=== PATIENT | female | born 1940 | race Caucasian/White ===

== ENCOUNTER 2017-02-09 18:36 | Emergency (ER) | payer MEDICARE, OTHER ==
[~2017-02-09] VITALS: Ht 160 cm; Wt 62.3 kg
[~2017-02-09 18:36] MED LIST: AMLO25TA PO; CALC-190 PO; HYDR12.55 PO; LISI10TA4 PO; NEUR100C PO; PRAV1TAB39 PO; SYNT88TA2 PO; TYLE325T5 PO; VITATAB11 PO
[2017-02-09] MEDS ORDERED: LISI40TAB PO (18:50)
[2017-02-09] MEDS ORDERED: AZEL1SPR3 (18:50)
[2017-02-09] MEDS ORDERED: PRAV20TA2 PO (18:50)
[2017-02-09] MEDS ORDERED: SPIR25TA2 PO (18:50)
[2017-02-09] MEDS ORDERED: LEVO75TA4 PO (18:50)
[2017-02-09] MEDS ORDERED: TYLE500T78 PO (19:08)
[2017-02-09] MEDS ORDERED: ONDANSETRON 4 MG ORAL DISINTEGRATING TAB (S0181) PO ONE ×3 (20:00→23:00)
[2017-02-09] MEDS ORDERED: PERCOCET 5MG/325MG TAB PO ONE ×2 (20:00→22:00)
--- NOTE | 2017-02-09 21:00 | REPUSA ---
CLINICAL INFORMATION: Pain. TECHNIQUE: Right ankle, 4 views. FINDINGS: There is an acute avulsion fracture often distal fibula, with a displaced fragments seen laterally. M oderate lateral soft tissue swelling is noted as well. The ankle mortise is intact. The osseous align ment is normal. The visualized portions of the tarsal bones and hindfoot are within normal limits. IMPRESSION: Acute, laterally displaced avulsion fracture of the distal fibula..
--- NOTE | 2017-02-09 21:00 | REPUSA ---
CLINICAL INFORMATION: Pain. TECHNIQUE: 5 views of the right foot. FINDINGS: The metatarsals remain aligned with the cuneiforms. A surgical pin is seen in the distal first metata rsal. Fixation of the fracture at the site is noted. There is an acute nondisplaced fracture of the c alcaneus. There is no abnormal periosteal reaction. The joint spaces are preserved. The subtalar join ts appear normal. The navicular and cuboid bones are intact as well. The soft tissues appear unremark able. IMPRESSION: 1. Acute nondisplaced fracture of the calcaneus. 2. Surgical fixated fracture of the distal first metatarsal.
[2017-02-09] MEDS ORDERED: NORCO 5/325MG TABLET (BULK FOR ED) PO ONE (22:00)
[2017-02-09] MEDS ORDERED: ZOFR4TAB3 PO (22:03)
[2017-02-09] MEDS ORDERED: PERC5TAB12 PO ×2 (22:03→22:07)
[2017-02-09 22:30] VITALS: BP 161/71
== END 2017-02-10 00:18 | disposition home or self-care (01) ==
LOC: EDBD 18:36 → M ED 19:36
DX: S92.001A Unspecified fracture of right calcaneus, initial encounter for closed fracture (principal); S82.491A Other fracture of shaft of right fibula, initial encounter for closed fracture; W10.9XXA Fall (on) (from) unspecified stairs and steps, initial encounter; Y92.094 Garage of other non-institutional residence as the place of occurrence of the external cause; Y93.01 Activity, walking, marching and hiking; Y99.9 Unspecified external cause status; I10 Essential (primary) hypertension; E03.9 Hypothyroidism, unspecified; R51 Headache; Z79.899 Other long term (current) drug therapy; Z88.8 Allergy status to other drugs, medicaments and biological substances; Z88.5 Allergy status to narcotic agent; Z88.6 Allergy status to analgesic agent

== ENCOUNTER → 2017-09-06 | Outpatient (REF) | payer MEDICARE, OTHER | LOC: M LAB REF 16:46 | DX: E03.9 Hypothyroidism, unspecified (principal) | CPT/HCPCS: 84481 ==

== ENCOUNTER 2017-12-18 08:54 | Day surgery (SDC) | payer MEDICARE, OTHER ==
[~2017-12-18 08:54] MED LIST changes: +ACETAMINOPHEN 325 MG TAB PO; -AMLO25TA PO; -CALC-190 PO; -HYDR12.55 PO; -LISI10TA4 PO; +MIDAZOLAM INJ 2 MG/2 ML VIAL (J2250) As Ordered; -NEUR100C PO; +PHENYLEPHRINE HCL 10 % OPHTH. SOL 5ML OS; -PRAV1TAB39 PO; -SYNT88TA2 PO; -TYLE325T5 PO; -VITATAB11 PO; +fentaNYL 100 MCG/2 ML INJECTION (J3010) As Ordered
[2017-12-18] MEDS: LIDOCAINE 3.5 % 1ML OPHTH TOPICAL GEL OU (09:55)
[2017-12-18] MEDS: OFLOXACIN 0.3 % (OCUFLOX) OPTH SOL 5ML OS (10:00)
[2017-12-18] MEDS: TROPICAMIDE 1% OPHTH SOLN 2ML OS (10:00)
[2017-12-18] MEDS: CYCLOPENTOLATE 2% OPHTH SOLN 2ML BTL OS (10:00)
[2017-12-18] MEDS: PHENYLEPHRINE 2.5% OPHTH SOL 2ML OS (10:00)
[2017-12-18] MEDS: HEALON DUET (HEALON 10MG/ML 0.55ML & HEALON ENDOCOAT 30MG/ML 0.85ML) As Ordered (11:50)
[2017-12-18] MEDS: LIDOCAINE 1% SDV 5 ML VIAL As Ordered (11:50)
[2017-12-18] MEDS: POVIDONE-IODINE 5% OPHTH PREP SOL 30ML As Ordered (11:50)
[2017-12-18] MEDS: TRIAMCINOLONE PRES FR 40 MG/ML 1ML(TRIESENCE)(OR EYE ONLY)(J3300 PER 1MG) As Ordered ×2 (11:50→11:55)
[2017-12-18] MEDS: BSS with VANC/TOB/EPI for EYE CASES IR (11:50)
[2017-12-18] MEDS: MOXIFLOXACIN IN BSS 0.25MG/0.25ML INTRACAMERAL INJ (OR EYE ONLY)(J2280) As Ordered (11:51)
[2017-12-18] MEDS: LIDOCAINE 2% W/EPIN INJ 20ML **PRES FREE XX (11:52)
[2017-12-18] MEDS ORDERED: AcetaZOLAMIDE 500 MG ER CAP As Ordered (12:27)
[2017-12-18] MEDS: AcetaZOLAMIDE 500 MG ER CAP PO (12:30)
[2017-12-18] MEDS ORDERED: TRIMETHOBENZAMIDE 300 MG CAP PO (12:45)
[2017-12-18] MEDS ORDERED: ACETAMINOPHEN TAB 650MG DOSE (2X325MG) PO (13:00)
[2017-12-18] MEDS ORDERED: ONDANSETRON 4MG/2ML VIAL (J2405) IV (13:00)
== END 2017-12-18 12:50 | disposition home or self-care (01) ==
LOC: M SDC 08:54
DX: H26.9 Unspecified cataract (principal); I10 Essential (primary) hypertension; J45.909 Unspecified asthma, uncomplicated; E03.9 Hypothyroidism, unspecified; Z88.8 Allergy status to other drugs, medicaments and biological substances; Z79.899 Other long term (current) drug therapy; Z79.82 Long term (current) use of aspirin
CPT/HCPCS: 66984

== ENCOUNTER 2017-12-25 07:23 | Day surgery (SDC) | payer MEDICARE, OTHER ==
[~2017-12-25 07:23] MED LIST changes: +PHENYLEPHRINE HCL 10 % OPHTH. SOL 5ML OD; -PHENYLEPHRINE HCL 10 % OPHTH. SOL 5ML OS
[2017-12-25] MEDS: LIDOCAINE 3.5 % 1ML OPHTH TOPICAL GEL OU ×4 (08:15)
[2017-12-25] MEDS: TROPICAMIDE 1% OPHTH SOLN 2ML OD ×4 (08:18)
[2017-12-25] MEDS: OFLOXACIN 0.3 % (OCUFLOX) OPTH SOL 5ML OD ×4 (08:18)
[2017-12-25] MEDS: CYCLOPENTOLATE 2% OPHTH SOLN 2ML BTL OD ×4 (08:19)
[2017-12-25] MEDS: PHENYLEPHRINE 2.5% OPHTH SOL 2ML OD ×4 (08:20)
[2017-12-25] MEDS: POVIDONE-IODINE 5% OPHTH PREP SOL 30ML As Ordered ×4 (09:50)
[2017-12-25] MEDS: LIDOCAINE 1% SDV 5 ML VIAL As Ordered ×4 (09:53)
[2017-12-25] MEDS: BSS with VANC/TOB/EPI for EYE CASES IR ×4 (09:54)
[2017-12-25] MEDS: TRIAMCINOLONE PRES FR 40 MG/ML 1ML(TRIESENCE)(OR EYE ONLY)(J3300 PER 1MG) As Ordered ×4 (09:58)
[2017-12-25] MEDS: LIDOCAINE 2% W/EPIN INJ 20ML **PRES FREE As Ordered ×4 (09:59)
[2017-12-25] MEDS: MOXIFLOXACIN IN BSS 0.25MG/0.25ML INTRACAMERAL INJ (OR EYE ONLY)(J2280) As Ordered ×4 (09:59)
[2017-12-25] MEDS: HEALON DUET PRO(HEALON 10MG/ML 0.55ML & HEALON ENDOCOAT 30MG/ML 0.85ML) As Ordered (10:02)
[2017-12-25] MEDS: HEALON DUET (HEALON 10MG/ML 0.55ML & HEALON ENDOCOAT 30MG/ML 0.85ML) As Ordered ×3 (10:02)
[2017-12-25] MEDS ORDERED: AcetaZOLAMIDE 500 MG ER CAP As Ordered ×4 (10:31)
[2017-12-25] MEDS: AcetaZOLAMIDE 500 MG ER CAP PO ×4 (10:38)
[2017-12-25] MEDS ORDERED: TRIMETHOBENZAMIDE 300 MG CAP PO ×4 (10:45)
== END 2017-12-25 10:43 | disposition home or self-care (01) ==
LOC: M SDC 07:23
DX: H25.13 Age-related nuclear cataract, bilateral (principal); I10 Essential (primary) hypertension; E03.9 Hypothyroidism, unspecified; G43.909 Migraine, unspecified, not intractable, without status migrainosus; E78.00 Pure hypercholesterolemia, unspecified; Z88.8 Allergy status to other drugs, medicaments and biological substances; Z79.899 Other long term (current) drug therapy; Z87.19 Personal history of other diseases of the digestive system; Z86.2 Personal history of diseases of the blood and blood-forming organs and certain disorders involving the immune mechanism; Z87.891 Personal history of nicotine dependence; Z90.710 Acquired absence of both cervix and uterus; Z92.21 Personal history of antineoplastic chemotherapy; Z95.828 Presence of other vascular implants and grafts
CPT/HCPCS: 66984

== ENCOUNTER → 2018-02-12 | Outpatient (CLI) | payer MEDICARE, OTHER | LOC: M WHC 09:47 | DX: Z12.31 Encounter for screening mammogram for malignant neoplasm of breast (principal); Z92.89 Personal history of other medical treatment; Z92.29 Personal history of other drug therapy; Z80.3 Family history of malignant neoplasm of breast; Z80.0 Family history of malignant neoplasm of digestive organs | CPT/HCPCS: 77067 ==

== ENCOUNTER → 2018-07-29 | Outpatient (CLI) | payer MEDICARE, OTHER ==
[~2018-07-29] MED LIST changes: -ACETAMINOPHEN 325 MG TAB PO; +AMLO25TA PO; +ASPI81TA26 PO; +AZEL1SPR3; +CALC-190 PO; +CALC600T31 PO; +CELE20TA PO; +CONRAY-43 43% 50ML VIAL (Q9960) As Ordered ONE; +FLUTISP; +HYDR12.55 PO; +LEVO75TA4 PO; +LIDOCAINE 1% MDV 20ML VIAL As Ordered ONE; +LISI10TA4 PO; +LISI40TA PO; -MIDAZOLAM INJ 2 MG/2 ML VIAL (J2250) As Ordered; +NEUR100C PO; +PERC5TAB12 PO; -PHENYLEPHRINE HCL 10 % OPHTH. SOL 5ML OD; +PRAV1TAB39 PO; +PRAV20TA2 PO; +SPIR-10 PO; +SYNT88TA2 PO; +TRIAMCINOLONE ACETONIDE SUSP 40 MG/ML VIAL (J3301) As Ordered ONE; +TYLE325T5 PO; +TYLE500T78 PO; +VITA500T3 PO; +VITATAB11 PO; +ZOFR4TAB14 PO; -fentaNYL 100 MCG/2 ML INJECTION (J3010) As Ordered
--- NOTE | 2018-07-29 16:35 | REP ---
RIGHT SUBTALAR JOINT INJECTION The procedure was performed under the direct supervision of Dr. garcia. The benefits and risks including but not limited to pain infection bleeding and anaphylaxis were explained to the patient and informed consent was obtained. The right subtalar joint space was localized using fluoroscopic guidance. The skin was prepped and draped in a sterile fashion. 1% lidocaine was used as a local anesthetic. Using fluoroscopic guidance a 22-gauge needle was inserted and advanced into the joint. 1 ml of Conray 43 was injected to verify placement. 3 ml of a solution containing 2 ml of 1% lidocaine and 1 ml of Kenalog 40 mg was injected. The needle was then removed. The patient tolerated the procedure well and there were no immediate complications. 0.6 minutes of fluoroscopy time was utilized for this procedure. Reviewed by ALESSANDRA Rodriguez 07/29/2018 04:05 P Electronically Signed by Orlando Garcia MD 07/29/2018 04:27 P
== END ==
LOC: M RADPRO 09:10
PROVIDERS: ATTEND Orthopaedic Surgery
DX: M72.2 Plantar fascial fibromatosis (principal)
CPT/HCPCS: 20605; 77002; J3301; Q9960

== ENCOUNTER 2019-02-03 10:16 | Day surgery (SDC) | payer MEDICARE, OTHER ==
[~2019-02-03] VITALS: Ht 157.5 cm; Wt 61.7 kg
[~2019-02-03 10:16] MED LIST changes: +ALDA25TA2 PO; +BIOT10TA2 PO; -CONRAY-43 43% 50ML VIAL (Q9960) As Ordered ONE; +CYAN500T8 PO; +KP F1200 PO; -LIDOCAINE 1% MDV 20ML VIAL As Ordered ONE; +MAGN400T14 PO; +NS 1,000 ML IV ONE; +SUPETAB44 PO; -TRIAMCINOLONE ACETONIDE SUSP 40 MG/ML VIAL (J3301) As Ordered ONE; -VITA500T3 PO; +propofoL 200 MG/20 ML VIAL As Ordered ONE; +vitamin D PO
--- NOTE | 2019-02-03 11:29 | ROOR ---
Patient Name: Sandy Connors Procedure Date: 02/03/2019 11:10 AM Date of : 1940 Age: 78 Room: [facility] Gender: Female Note Status: Finalized Procedure: Colonoscopy Indications: Colon cancer screening in patient at increased risk: Colorectal cancer in sister Providers: Dandre ANDREA MD Referring MD: Jenise Stevenson NP Requesting Provider: Medicines: Monitored Anesthesia Care Complications: No immediate complications. Procedure: Pre-Anesthesia Assessment: - The heart rate, respiratory rate, oxygen saturations, blood pressure, adequacy of pulmonary ventilation, and response to care were monitored throughout the procedure. The Colonoscope was introduced through the anus and advanced to the terminal ileum, with identification of the appendiceal orifice and IC valve. The colonoscopy was performed without difficulty. The patient tolerated the procedure well. The quality of the bowel preparation was good. Findings: The perianal and digital rectal examinations were normal. A few medium-mouthed diverticula were found in the left colon. The exam was otherwise without abnormality on direct and retroflexion views. Impression: - Mild diverticulosis in the left colon. - The colonoscopy was otherwise normal on direct and retroflexion views. - No specimens collected. Recommendation: - Repeat colonoscopy PRN for screening purposes. Dandre Andrea MD Dandre ANDREA MD 02/03/2019 11:28:56 AM Electronically signed by Dandre ANDREA MD Number of Addenda: 0 Note Initiated On: 02/03/2019 11:10 AM Estimated Blood Loss: Estimated blood loss: none.
[2019-02-03 11:45] VITALS: BP 150/67
== END 2019-02-03 11:56 | disposition home or self-care (01) ==
LOC: M OPP 10:16
PROVIDERS: ATTEND Internal Medicine Gastroenterology
DX: Z12.11 Encounter for screening for malignant neoplasm of colon (principal); Z80.0 Family history of malignant neoplasm of digestive organs; K57.30 Diverticulosis of large intestine without perforation or abscess without bleeding; I10 Essential (primary) hypertension; E78.5 Hyperlipidemia, unspecified; E07.9 Disorder of thyroid, unspecified; Z87.19 Personal history of other diseases of the digestive system; R19.4 Change in bowel habit; M19.90 Unspecified osteoarthritis, unspecified site; G43.909 Migraine, unspecified, not intractable, without status migrainosus; Z92.3 Personal history of irradiation; Z96.0 Presence of urogenital implants; Z88.8 Allergy status to other drugs, medicaments and biological substances; Z88.5 Allergy status to narcotic agent; Z79.82 Long term (current) use of aspirin; Z79.899 Other long term (current) drug therapy

== ENCOUNTER → 2019-04-15 | Outpatient (CLI) | payer MEDICARE, OTHER ==
[~2019-04-15] MED LIST changes: -NS 1,000 ML IV ONE; -propofoL 200 MG/20 ML VIAL As Ordered ONE
--- NOTE | 2019-04-15 16:43 | REPMRS ---
Patient History The patient states she had a clinical breast exam in 2018. Patient has history of other cancer at age 72. Family history of breast cancer at age 50 or over in sister, breast cancer at age 50 or over in sister, colorectal cancer at age 50 or over in sister, breast cancer under age 50 in mother. Benign lumpectomy of the right breast, 1979. Taking unspecified hormones for 40 years. Digital Woman Screen Mammo: April 15, 2019 - Exam #: [id number] Bilateral CC and MLO view(s) were taken. Technologist: Cintia Archer, Technologist Prior study comparison: February 12, 2018, bilateral digital woman screen mammo performed at [facility], [place]. February 08, 2017, digital woman screen mammo performed at [facility] [place]. February 17, 2016, digital woman screen mammo performed at [facility] [place]. FINDINGS: The breast tissue is heterogeneously dense. This may lower the sensitivity of mammography. There is a moderate amount of heterogeneously dense fibroglandular tissue which is fairly symmetric. There is no interval development of dominant mass, architectural distortion, or grouped microcalcification typical of malignancy. There has been no change in the appearance of the mammogram from the prior studies. 3-D tomosynthesis shows no additional findings. Assessment: BI-RADS/ACR category 1 mammogram. Negative Mammogram. Recommendation Routine screening mammogram of both breasts in 1 year (for women over age 40). This patient's Lifetime Breast Cancer RIsk is estimated at 5.2 %. This mammogram was interpreted with the aid of an FDA-approved computer-aided dectection system. Electronically Signed By: Az Duran MD 04/15/19 [id number]
--- NOTE | 2019-04-21 09:02 | DEXA ---
AP SPINE L1 - L2 0.979 -1.7 0.0 LT FEMUR TOTAL 0.784 -1.8 -0.2 LT NECK 0.818 -1.6 0.5 RT FEMUR TOTAL 0.789 -1.7 0.2 RT NECK 0.723 -2.3 -0.1 TOTAL BODY TOTAL OTHER COMMENTS: Normal bone densitometry of the spine. There is low bone density of the hips. The density of the spine has increased 2.0% since the initial exam on 04/25/2005. The spine density has decreased 3.7% since the most recent exam on 02/08/2017. The density of the left hip has decreased 6.4% since the initial exam on 04/25/2005. The density of the left hip has increased 2.2% since the most recent exam on 02/08/2017. The density of the right hip has decreased 9.9% since the initial exam on 04/25/2005. The density of the right hip has decreased 4.8% since the most recent exam on 02/08/2017. FOLLOW-UP: Recommendation for the next bone density exam: 2 years. SOULEYMANED
== END ==
LOC: M WHC 14:05
PROVIDERS: ATTEND Nurse Practitioner Adult Health
DX: Z12.31 Encounter for screening mammogram for malignant neoplasm of breast (principal); M81.0 Age-related osteoporosis without current pathological fracture; Z80.3 Family history of malignant neoplasm of breast; Z80.0 Family history of malignant neoplasm of digestive organs; Z86.018 Personal history of other benign neoplasm; Z92.29 Personal history of other drug therapy
CPT/HCPCS: 77063; 77067; 77080; G0463

== ENCOUNTER → 2019-07-01 | Outpatient (CLI) | payer MEDICARE, OTHER ==
[~2019-07-01] MED LIST changes: +ACET-683 PO; +ACET-861 PO; +CALCCAP4 PO; +PROBCAP14 PO
[2019-07-01 11:18] LABS: HEMATOCRIT 39.3 % (36.0-47.0); HEMOGLOBIN 12.6 g/dl (12.0-15.5); MEAN CORPUSCULAR HEMOGLOBIN 30.7 pg (27.0-33.0); MEAN CORPUSCULAR HGB CONC 32.1 g/dl (32.0-36.5); MEAN CORPUSCULAR VOLUME 95.9 fl (80.0-96.0); PLATELET COUNT, AUTOMATED 289 10^3/uL (150-450); WHITE BLOOD COUNT 7.1 10^3/uL (4.0-10.0)
[2019-07-01 11:33] LABS: INR 1.02; PROTHROMBIN TIME 13.1 SECONDS (11.8-14.0)
--- NOTE | 2019-07-01 11:36 | REP ---
CHEST, TWO VIEWS: There is no evidence of acute infiltrate. No pleural effusion is seen. The heart is normal in size. The mediastinal silhouette is unremarkable. The visualized osseous structures are intact. IMPRESSION: No acute pulmonary disease. Electronically Signed by Orlando Garcia MD 07/01/2019 03:58 P
[2019-07-01 11:55] LABS: ALBUMIN 4.3 GM/DL (3.2-5.2); BILIRUBIN,TOTAL 0.6 MG/DL (0.2-1.0); CALCIUM LEVEL 9.2 MG/DL (8.8-10.2); CREATININE FOR GFR 1.02 MG/DL (0.55-1.30); GLOMERULAR FILTRATION RATE 55.7 (>39); POTASSIUM SERUM 5.1 MEQ/L (3.5-5.1); TOTAL PROTEIN 7.5 GM/DL (6.4-8.2)
[2019-07-01 11:56] LABS: ERYTHROCYTE SEDIMENTATION RATE 11 mm/hr (0-30)
--- NOTE | 2019-07-03 14:34 | ECGEPIP ---
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
== END ==
LOC: M LAB 09:54
PROVIDERS: ATTEND Orthopaedic Surgery
DX: Z01.818 Encounter for other preprocedural examination (principal); M17.12 Unilateral primary osteoarthritis, left knee; Z79.82 Long term (current) use of aspirin; Z79.899 Other long term (current) drug therapy

== ENCOUNTER → 2019-07-02 | Outpatient (CLI) | payer MEDICARE, OTHER ==
--- NOTE | 2019-07-02 12:34 | REP ---
CAROTID ULTRASOUND: Real-time ultrasound evaluation and duplex Doppler interrogation of the extracranial carotid vasculature is performed. There is mild plaquing and narrowing in both carotid bulbs extending into the internal and external carotid arteries. Luminal narrowing is less than 50%. There is no evidence of hemodynamically significant stenosis of either internal carotid artery. Normal flow velocities are seen. The vertebral arteries demonstrate normal direction of flow. RIGHT LEFT Peak systolic velocity ICA 122 cm/s 114 cm/s End diastolic velocity ICA 17.3 cm/s 24.3 cm/s Peak systolic velocity CCA 69.3 cm/s 111 cm/s Peak systolic velocity ECA 64.4 cm/s 56.3 cm/s ICA/CCA ratio 1.8 1.0 IMPRESSION: Bilateral luminal narrowing of the internal carotid arteries less than 50%. No evidence of hemodynamically significant stenosis. Electronically Signed by Orlando Garcia MD 07/02/2019 12:26 P
== END ==
LOC: M RAD 09:49
PROVIDERS: ATTEND Internal Medicine
DX: R09.89 Other specified symptoms and signs involving the circulatory and respiratory systems (principal)

== ENCOUNTER 2019-07-13 05:34 | Inpatient (IN) | payer MEDICARE, OTHER ==
--- NOTE | 2019-07-08 15:13 | HPE ---
DATE OF ADMISSION: 07/13/2019 CHIEF COMPLAINT: Left knee pain. HISTORY OF PRESENT ILLNESS: Sandy Connors is a pleasant 78-year-old female with progressively worsening left knee pain and stiffness. She has failed to improve with conservative treatment. She has elected for surgery for her continued symptoms. She has pain with weightbearing activities and her activities of daily living. X-rays of her knee are notable for advanced osteoarthritis of the left knee joint. She has consented for a left total knee arthroplasty by Dr. Severo Torres. Medical optimization was performed by Dr. Bray. ALLERGIES: BETA-BLOCKERS and DEMEROL CURRENT MEDICATIONS: - Synthroid 75 mcg a day - spironolactone 25 mg a day - lisinopril 10 mg a day - Celexa 20 mg a day - baby aspirin every day PAST MEDICAL HISTORY: Includes hypothyroidism, hypertension, hyperlipidemia, anxiety and depression. PAST SURGICAL HISTORY: Not provided. FAMILY HISTORY: Noncontributory. REVIEW OF SYSTEMS: This patient denies chest pain, heart palpitations, cough, wheezing, difficulty breathing and shortness of breath. She denies abdominal pain, nausea, vomiting, diarrhea or constipation. She denies recent upper respiratory infection or urinary tract infection symptoms. She does complain of persistent pain in the left knee. PHYSICAL EXAMINATION: General: She is a well-nourished, well-developed and in no acute distress, alert female. She walks with a moderate limp favoring her left lower extremity. She is not using assistive devices. Vital signs: She is 62 inches tall, weighs 137 pounds with a temperature of 97.4, blood pressure 124/68, pulse of 64 and respirations of 14. Neck was supple without adenopathy or jugular venous distension. Lungs are clear to auscultation. Heart with regular rate and rhythm. Abdomen: Bowel sounds were present. Extremities: Examination of the knee revealed intact skin. She had decreased range of motion due to pain and stiffness. The limb is neurovascularly intact. Electrocardiogram (EKG) showed sinus bradycardia at 59 beats per minute. Chest x-ray showed no acute cardiopulmonary disease processes. Pro-time 13.1, INR 1.02, glucose 79, BUN 19, creatinine 1.02. Sodium 134, potassium 5.1. CBC was within normal limits with a sed rate of 11. IMPRESSION: Symptomatic osteoarthritis of the left knee joint. PLAN: Consented for a left total knee arthroplasty by Dr. Severo oTrres.
[~2019-07-13] VITALS: Ht 160 cm; Wt 62.6 kg
[2019-07-13] VITALS (7 sets, daily range): BP systolic 112–141; BP diastolic 60–72
[2019-07-13] MEDS ORDERED: LR 1,000 ML IV ONE (06:00)
[2019-07-13] MEDS ORDERED: fentaNYL 100 MCG/2 ML INJECTION (J3010) IV SCH (06:00)
[2019-07-13] MEDS ORDERED: ceFAZolin SOD 2 GM in IV 1 EA IV ONE (06:00)
[2019-07-13] MEDS ORDERED: MIDAZOLAM INJ 2 MG/2 ML VIAL (J2250) IV SCH (06:00)
[2019-07-13] MEDS ORDERED: ACETAMINOPHEN 500 MG TAB PO ONE (06:00)
[2019-07-13] MEDS ORDERED: fentaNYL 100 MCG/2 ML INJECTION (J3010) As Ordered ONE ×2 (06:50→07:51)
[2019-07-13] MEDS ORDERED: MIDAZOLAM INJ 2 MG/2 ML VIAL (J2250) As Ordered ONE ×2 (06:50→07:51)
[2019-07-13] MEDS ORDERED: BUPIVACAINE LIPOSOME/PF 1.3% 20ML VIAL (13.3MG/ML)(EXPAREL)(C9290 PER1MG) As Ordered ONE (07:12)
[2019-07-13] MEDS ORDERED: ceFAZolin 1GM INJ (J0690 PER 500MG) As Ordered ONE (07:12)
[2019-07-13] MEDS ORDERED: BUPIVACAINE HCL 0.25% 30 ML VIAL As Ordered ONE (07:12)
[2019-07-13] MEDS ORDERED: EPINEPHrine INJ 1 MG/ML 1ML VIAL As Ordered ONE (07:12)
[2019-07-13] MEDS ORDERED: TRANEXAMIC ACID 100 MG/ML 10ML VIAL As Ordered ONE (07:12)
[2019-07-13] MEDS ORDERED: propofoL 200 MG/20 ML VIAL As Ordered ONE (07:51)
[2019-07-13] MEDS ORDERED: LIDOCAINE 2% INJ 100 MG/5 ML SDV (FOR ANES.) As Ordered ONE (07:51)
[2019-07-13] MEDS ORDERED: ROCURONIUM BROMIDE 50 MG/5 ML VIAL As Ordered ONE (07:51)
[2019-07-13] MEDS ORDERED: HYDROmorphone HCL 2 MG/ML 1ML VIAL (J1170) As Ordered ONE (07:52)
[2019-07-13] MEDS ORDERED: dexameTHASONE 4 MG/ML 1ML VIAL (J1100) As Ordered ONE (07:54)
[2019-07-13] MEDS ORDERED: SUGAMMADEX SODIUM 500 MG/5 ML VIAL (BRIDION) As Ordered ONE (08:07)
[2019-07-13] MEDS ORDERED: ONDANSETRON 4MG/2ML VIAL (J2405) As Ordered ONE (08:07)
[2019-07-13] MEDS ORDERED: hydrALAZINE INJ 20 MG/ML VIAL As Ordered ONE (08:12)
[2019-07-13] MEDS ORDERED: dexameTHASONE 10 MG/1 ML VIAL PRES.FREE (J1100) ONE (08:17)
[2019-07-13] MEDS ORDERED: LIDOCAINE 1% MDV 20ML VIAL ONE (08:17)
[2019-07-13] MEDS ORDERED: ROPIvacaine 0.5% 30 ML INJECTION (J2795 PER 1MG) ONE (08:17)
[2019-07-13] MEDS ORDERED: ePHEDrine SULFATE 25 MG/5 ML(5MG/ML) SYRINGE As Ordered ONE ×2 (08:30→09:02)
[2019-07-13] MEDS ORDERED: PHENYLephrine HCL 500 MCG/5 ML (100MCG/ML) SYRINGE (J2370) As Ordered ONE (09:10)
[2019-07-13] MEDS ORDERED: ONDANSETRON 4MG/2ML VIAL (J2405) IV PRN ×2 (09:45)
[2019-07-13] MEDS ORDERED: fentaNYL 100 MCG/2 ML INJECTION (J3010) IV PRN (09:45)
[2019-07-13] MEDS ORDERED: MORPHINE 2 MG/ML 1ML VIAL (J2270) IV PRN (09:45)
[2019-07-13] MEDS ORDERED: PERCOCET 5MG/325MG TAB PO PRN ×3 (09:45)
[2019-07-13] MEDS ORDERED: METOCLOPRAMIDE INJ 10MG/2ML VIAL (J2765) IV PRN (09:45)
[2019-07-13] MEDS ORDERED: LR 1,000 ML IV SCH ×2 (09:45)
[2019-07-13] MEDS ORDERED: MORPHINE 4 MG/ML 1ML VIAL/SYRINGE (J2270) IV PRN (09:45)
--- NOTE | 2019-07-13 09:54 | REP ---
Left knee: Two views. History: Postop in PACU. Findings: Anterior skin jeb are seen. Left knee arthroplasty components are well aligned. There is interarticular and periarticular soft tissue emphysema. Impression: Status post left knee arthroplasty. Electronically Signed by Kartik Duran MD 07/13/2019 09:45 A
[2019-07-13] MEDS: ceFAZolin SOD 2 GM in IV 1 EA IV SCH (15:25)
[2019-07-13] MEDS: ACETAMINOPHEN TAB 650MG DOSE (2X325MG) PO PRN (18:42)
[2019-07-13] MEDS ORDERED: PRAVASTATIN 20 MG TAB PO SCH (21:00)
[2019-07-14] MEDS: ceFAZolin SOD 2 GM in IV 1 EA IV SCH ×2 (00:39→08:00)
[2019-07-14 02:00] VITALS: BP 123/59
[2019-07-14 06:00] VITALS: BP 134/61
[2019-07-14] MEDS ORDERED: LEVOTHYROXINE 75MCG TABLET (0.075MG) PO SCH (06:00)
[2019-07-14] MEDS ORDERED: XARE10TA PO (06:32)
[2019-07-14] MEDS ORDERED: PERC5TAB12 PO (06:32)
[2019-07-14] MEDS: ACETAMINOPHEN TAB 650MG DOSE (2X325MG) PO PRN (06:41)
[2019-07-14 06:53] LABS: HEMATOCRIT 29.7 % (36.0-47.0); HEMOGLOBIN 9.8 g/dl (12.0-15.5); MEAN CORPUSCULAR HEMOGLOBIN 31.8 pg (27.0-33.0); MEAN CORPUSCULAR VOLUME 96.4 fl (80.0-96.0); PLATELET COUNT, AUTOMATED 243 10^3/uL (150-450); RED BLOOD COUNT 3.08 10^6/uL (4.00-5.40); WHITE BLOOD COUNT 13.5 10^3/uL (4.0-10.0)
--- NOTE | 2019-07-14 06:54 | CR ---
DATE OF CONSULTATION: 07/13/2019 REASON FOR CONSULTATION: Medical management. PHYSICIAN REQUESTING CONSULTATION: Dr. Torres from the orthopedic surface. HISTORY OF PRESENT ILLNESS (HPI): Sandy is a 78-year-old woman who has a past medical history notable for hypertension secondary to renal artery stenosis. She is status post stenting in the past. She also has history of hypothyroidism secondary to iodine ablation for hypothyroidism. The patient has severe osteoarthritis and presented to the hospital for an elective left knee arthroplasty which she underwent without complications. I am seeing her in the postoperative setting. She has actually done quite well. Her pain is controlled. She is not experiencing any chest discomfort, any shortness of breath, no nausea or vomiting. Her vitals are stable. ALLERGIES: BETA-BLOCKERS, DEMEROL. HOME MEDICATIONS: - Synthroid - aldactone - lisinopril - Celexa - baby aspirin CURRENT HOSPITAL MEDICATIONS: - Xarelto 10 mg daily - lisinopril 10 mg daily - aldactone 25 mg daily - Synthroid 75 mcg daily - pravastatin 20 mg daily - cefazolin 50 mL every eight hours - Tylenol 650 every 4 hours as needed for pain - lactated Ringers 80 mL an hour - morphine sulfate 2 mg every 2 hours as needed for moderate pain, 3 mg as needed for severe pain - Percocet 1 tablet for moderate pain and then 2 tablets for severe pain - Zofran 4 mg every 6 hours as needed for nausea or vomiting PAST MEDICAL HISTORY: 1. Hypertension. 2. Renal artery stenosis. 3. Hyperlipidemia. 4. Hypothyroidism. 5. Osteoarthritis. 6. Anxiety. 7. Depression. PAST SURGICAL HISTORY: Left knee arthroplasty. SOCIAL HISTORY: The patient is , lives at home with her . She denies the use of tobacco, alcohol or illicit drugs. She is retired. FAMILY HISTORY: Notable for lung cancer in a brother who smoked. Her dad had heart disease and a stroke. Another sister had colon cancer. REVIEW OF SYSTEMS: 12-system reviewed and essentially negative. PHYSICAL EXAMINATION: VITAL SIGNS: Temperature 98.6, pulse 92, respirations 17, blood pressure 118/61, Oxygen sat 97% on room air. GENERAL: The patient is a awake, alert and oriented times three, appears in no acute distress. SKIN: Intact and warm to touch. HEAD: His head is atraumatic. Pupils equal, round, and reactive to light and accommodation. Extraocular movements are full in all directions. There is no sclerae icterus, no skin pallor. Oropharynx is clear. NECK: Neck is supple. LUNGS: Lungs sounds are present without rales or rhonchi. HEART: S1, S2, no audible murmurs or gallops. ABDOMEN: Abdomen is soft and nontender and nondistended. EXTREMITIES: Without any significant cyanosis, clubbing or edema. Left foot dorsalis pedis pulses 2+ and left knee is presently wrapped with surgical dressing, no visible exsanguination through her dressings are noted. NEUROLOGIC EXAM: Cranial nerves II through XII appear to be grossly intact. I did not test in her left lower extremity. LABORATORY DATA: No labs are available at this time. IMPRESSION: 1. Severe osteoarthritis status post left knee arthroplasty. 2. Hypertension. 3. Hyperlipidemia. 4. Deep venous thrombosis (DVT) prophylaxis. RECOMMENDATIONS: The patient's lisinopril, aldactone, Synthroid and pravastatin have been ordered by me. I have instructed her to not take her aspirin, while she is taking her Xarelto for DVT prophylaxis and then once she has been instructed that her course of anticoagulation with Xarelto has been completed then she may resume her aspirin. Thank you for involving us to participate in the care of this patient. Will follow along with you.
[2019-07-14 07:20] LABS: ALBUMIN 3.6 GM/DL (3.2-5.2); ALT/SGPT 24 U/L (12-78); BILIRUBIN,TOTAL 0.3 MG/DL (0.2-1.0); BLOOD UREA NITROGEN 16 MG/DL (7-18); CALCIUM LEVEL 9.3 MG/DL (8.8-10.2); CARBON DIOXIDE LEVEL 30 MEQ/L (21-32); CHLORIDE LEVEL 104 MEQ/L (98-107); CREATININE FOR GFR 0.92 MG/DL (0.55-1.30); GLOMERULAR FILTRATION RATE > 60.0 (>39); GLUCOSE, FASTING 116 MG/DL (70-100); POTASSIUM SERUM 4.5 MEQ/L (3.5-5.1); SODIUM LEVEL 136 MEQ/L (136-145); TOTAL PROTEIN 6.5 GM/DL (6.4-8.2)
--- NOTE | 2019-07-14 08:21 | RO ---
DATE OF PROCEDURE: 07/13/2019 PREPROCEDURE DIAGNOSIS: Left knee degenerative arthritis. POSTPROCEDURE DIAGNOSIS: Left knee degenerative arthritis. PROCEDURE: Left total knee arthroplasty using a size 4 cruciate retaining femoral component cemented, followed by a size 4 tibial tray and a 5 mm rotating platform, polyethylene insert, 32 mm polyethylene button. All components were cemented. Prosthesis made by [employer]up [employer]. It was an Attune knee. SURGEON: Dr. Karyn Torres ELECTRONIC PLOTTING SYSTEM OPERATOR: Ms. Zully Lord ANESTHESIA: Left femoral nerve block with a general endotracheal tube anesthetic. COMPLICATIONS: None. ESTIMATED BLOOD LOSS: 20 mL. SPECIMEN: Joint surface. DESCRIPTION OF PROCEDURE: Antibiotics were given intravenously preoperatively and a successful left femoral nerve block and then a general endotracheal anesthetic was established. A tourniquet was placed on the left upper thigh and not inflated. The left lower extremity was prepped and draped in the usual sterile fashion, elevated and after an appropriate time out the tourniquet was inflated. A longitudinal incision was made for a medial parapatellar approach to the knee. Bovie cautery used to coagulate crossing vessels. Subperiosteal dissection around the proximal, medial and lateral tibial plateau was performed. The patella was everted and the knee flexed. The anterior cruciate ligament (ACL) debrided. The drill placed down the center of the femoral canal, followed by the intramedullary varghese and the distal femoral cutting jig set at 5 degrees valgus cut at 9 mm resection level for a left knee. The block was pinned in position and the distal femoral cut performed. AP sizing jig measured for a size 4. It was pinned into position with 3 degrees of external rotation dialed in and then the 4-in-1 block applied. The anterior, posterior, and chamfer cuts performed. A sulcus osteotomy was made using the jig and then we exposed the proximal tibia, using the extramedullary alignment jig, estimating it to be parallel to the mechanical axis of the tibia, referencing off the medial tibial condyle at 4 mm resection level. The block was pinned into position. Secondary check of the extramedullary varghese confirmed we appeared to be parallel. Then the proximal tibial osteotomy was thus performed. The [place] [employer] was placed laterally and we performed a completion medial meniscectomy with debridement of posterior medial osteophytes. Then placed the [place] [employer] medially and performed a completion lateral meniscectomy with debridement of posterior lateral osteophytes. The spacer blocks were then trialed and it was between a 5 and a 6 with excellent symmetry and stability to varus and valgus stress testing, both in flexion and in extension. We then exposed the proximal tibia and sized for a 4 tibial tray, which was pinned into position, followed by the reamer and broach. Then, the trial 6 was applied, followed by the trial femoral component. We brought the knee into extension, everted the patella and performed a patellar osteotomy and sized for a #32 button. Lug holes drilled. The prosthesis was applied and the patellofemoral tracking was anatomic. She was a little snug, however in internal flexion. I down sized with a #5 trial and that fit a bit better. I still released a little bit of the posterior cruciate ligament (PCL), but the 5 seemed to fit the best. We drilled the lug holes for the femur. All the trial components were removed. Exparel was placed in the subperiosteal tissues around the distal femur of the proximal tibia. Ms. Zully Lord mixed the cement on the back table as I prepared the bony surfaces for cementing with copious amounts of pulsatile lavage irrigant solution. Ms. Lord was also critical to the success of this difficult surgery by helping with appropriate soft tissue manipulation and helping to manipulate the knee as needed and helping to mix the cement, close the wound, prepare the patient, amongst many other tasks to allow me to perform the operation smoothly, efficiently and safely. Once all the bony surfaces were thoroughly dried, we cemented the tibial tray, removed excess cement, placed the polyethylene, cemented the femoral component, removed excess cement, brought the knee into extension, everted the patella, cemented the patellar button, removed excess cement, and held it with a clamp with the knee in full extension until the cement hardened. As we were awaiting this, we copiously irrigated out the knee joint. Tranexamic acid was placed in the knee. Then we began closing the apex of the arthrotomy with two #1 PDS sutures and medial parapatellar. PDS suture was placed followed by a double armed #1 running Stratafix to close the capsule. The tourniquet was then released. Then we irrigated the deep tissues and closed them with interrupted #2-0 PDS suture. The skin was closed with staple, covered by an Optifoam and dry sterile bulky dressing. She was then awakened from general endotracheal tube anesthesia and after having tolerated the procedure well there were no intraoperative complications.
[2019-07-14 08:36] VITALS: BP 134/61
[2019-07-14] MEDS ORDERED: SPIRONOLACTONE 25 MG TAB PO SCH (09:00)
[2019-07-14] MEDS ORDERED: MOM 30ML SUSPENSION UDC PO SCH (09:00)
[2019-07-14] MEDS ORDERED: lisinopriL 10 MG TAB PO SCH (09:00)
[2019-07-14] MEDS ORDERED: CEPHALEXIN 500 MG CAP PO ONE (09:00)
[2019-07-14] MEDS ORDERED: MIRALAX *UNIT DOSE* 17GM PACKET PO SCH (09:00)
[2019-07-14 10:00] VITALS: BP 129/56
[2019-07-14] MEDS ORDERED: RIVAROXABAN 10 MG TAB (XARELTO) PO SCH (18:00)
--- NOTE | 2019-07-16 18:33 | DSES ---
DATE OF ADMISSION: 07/13/2019 DATE OF DISCHARGE: 07/14/2019 ADMITTING DIAGNOSIS: Osteoarthritis, left knee. OTHER DIAGNOSES: 1. Hypertension. 2. Renal artery stenosis. 3. Hyperlipidemia. 4. Hypothyroidism. 5. Anxiety and depression. DISCHARGE DIAGNOSIS: Osteoarthritis, left knee, status post left total knee arthroplasty. OPERATION PERFORMED: Left total knee arthroplasty. HISTORY: This is a 78-year-old female patient with progressively worsening left knee pain and stiffness. HOSPITAL COURSE: The patient was admitted on day of surgery and underwent a left total knee arthroplasty, which was uneventful. She did well in the postoperative period. Her hospital course was without complications. He was up with physical therapy per their protocol. Her pain was controlled on day of discharge. She was doing well. She was weightbearing as tolerated on her left lower extremity. She will use thromboembolic deterrent (KENNY) stockings for 30 days postoperative for deep vein thrombosis (DVT) prophylaxis. She will also use Xarelto 10 mg per the protocol for DVT prophylaxis. She will resume her preoperative medications and diet. She was given instructions to include, but not limited to, wound monitoring and activity limitations. She will use oral pain medications for pain control. She will followup in our office in 10-14 days for surgical followup. Please refer to the medical record further details.
== END 2019-07-14 12:00 | disposition home or self-care (01) | DRG 470 ==
LOC: M OR 05:34 → M MS5PR 10:52
PROVIDERS: ADMIT Orthopaedic Surgery; ATTEND Orthopaedic Surgery
PROC: 0SRD069 Replacement of Left Knee Joint with Oxidized Zirconium on Polyethylene Synthetic Substitute, Cemented, Open Approach (ICD-10-PCS; principal; 2019-07-13 07:30)
DX: M17.12 Unilateral primary osteoarthritis, left knee (principal); Z88.8 Allergy status to other drugs, medicaments and biological substances; Z79.899 Other long term (current) drug therapy; Z79.82 Long term (current) use of aspirin; E03.9 Hypothyroidism, unspecified; I10 Essential (primary) hypertension; E78.5 Hyperlipidemia, unspecified; F41.9 Anxiety disorder, unspecified; F32.9 Major depressive disorder, single episode, unspecified; I70.1 Atherosclerosis of renal artery

== ENCOUNTER → 2019-11-28 | Outpatient (REF) | payer MEDICARE, OTHER ==
[~2019-11-28] MED LIST changes: +XARE10TA PO
== END ==
LOC: M LAB REF 12:20
PROVIDERS: ATTEND Physician Assistant Medical
DX: Z11.59 Encounter for screening for other viral diseases (principal)

== ENCOUNTER → 2019-12-23 | Outpatient (REF) | payer MEDICARE, OTHER ==
[2019-12-28 13:07] LABS: ANTI-SACCHAROMYCES CEREV. IgA <20.0 Units (0.0-24.9); ANTI-SACCHAROMYCES CEREV. IgG <20.0 Units (0.0-24.9)
== END ==
LOC: M LAB REF 17:21
PROVIDERS: ATTEND Nurse Practitioner Adult Health
DX: R19.7 Diarrhea, unspecified (principal)

== ENCOUNTER → 2019-12-24 | Outpatient (REF) | payer MEDICARE, OTHER | LOC: M LAB REF 17:57 | PROVIDERS: ATTEND Nurse Practitioner Adult Health | DX: R19.7 Diarrhea, unspecified (principal) ==

== ENCOUNTER → 2020-01-25 | Outpatient (CLI) | payer MEDICARE, OTHER ==
[~2020-01-25] MED LIST changes: +GLUCAGON INJ 1MG VIAL As Ordered ONE; +ISOVUE-370 76% 100ML VIAL As Ordered ONE; +VoLumen 0.1% SUSPENSION 450ML BOTTLE As Ordered ONE
--- NOTE | 2020-02-04 06:41 | REP ---
CT ENTEROGRAPHY WITH INTRAVENOUS (IV) AND ORAL CONTRAST HISTORY: Abdomen pain. Change in bowel habits. COMPARISON CT STUDY: None. COMPARISON ABDOMINAL IMAGING: None. TECHNIQUE: CT enterography protocol was utilized. VoLumen was given orally for negative bowel contrast. 0.6 mg of intravenous Glucagon was administered. 100 mL of intravenous Isovue-370 was administered. Multiphase postcontrast acquisition was performed and the study was augmented by maximum intensity projection and MPR images. CT ENTEROGRAPHY FINDINGS: Preliminary digital product mgmt dev manager radiograph demonstrates formed stool in the left colon. Bowel gas pattern is unremarkable. Metallic fusion hardware is seen in the lumbar spine at L4-5. On axial CT images, the lung bases are essentially clear. Mild linear fibrosis is seen in the lingula and right middle lobe. There is four chamber cardiac enlargement. The liver and the spleen are normal in size and homogeneous in texture. No abnormality is noted in the gallbladder. No pancreatic mass or cyst is seen. The kidneys enhance symmetrically and are morphologically intact. Normal adrenal glands are observed bilaterally. No retroperitoneal mass or adenopathy is seen. The abdominal aorta is somewhat tortuous, but normal in caliber. There are atherosclerotic changes and vascular calcification. There is moderate formed and liquid stool in the right and left colon. No mural thickening or abnormal bowel wall enhancement is appreciated. No obstructive lesion is seen. The uterus is surgically absent. The urinary bladder is unremarkable. Maximum intensity projection images show no additional abnormality. Arterial phase imaging, as well as equilibrium phase imaging shows patency of the celiac axis and superior mesenteric arteries from the aorta. The inferior mesenteric artery is patent as well. Extensive vascular calcification is seen at the origin of the renal arteries bilaterally. There is a stent in the right main renal artery. IMPRESSION: No evidence of abnormal bowel wall enhancement, mass, adenopathy, or obstruction. Moderate colonic stool. Vascular calcification. Lumbar spine fusion hardware in place. Post hysterectomy. Appendix not identified. MTDD
== END ==
LOC: M RAD 09:15
PROVIDERS: ATTEND Physician Assistant Medical
DX: R19.4 Change in bowel habit (principal); R10.84 Generalized abdominal pain; Z80.0 Family history of malignant neoplasm of digestive organs; Z98.1 Arthrodesis status; Z90.79 Acquired absence of other genital organ(s)
CPT/HCPCS: 74177; J1610; Q9967

== ENCOUNTER → 2020-03-29 | Outpatient (CLI) | payer SELFPAY ==
[~2020-03-29] MED LIST changes: +CYAN500T14 PO; -CYAN500T8 PO; -GLUCAGON INJ 1MG VIAL As Ordered ONE; -ISOVUE-370 76% 100ML VIAL As Ordered ONE; -VoLumen 0.1% SUSPENSION 450ML BOTTLE As Ordered ONE
== END ==
LOC: M LABSMTC 09:55
PROVIDERS: ATTEND Pediatrics
DX: Z20.828 Contact with and (suspected) exposure to other viral communicable diseases (principal)

== ENCOUNTER → 2020-04-15 | Outpatient (CLI) | payer MEDICARE, OTHER ==
--- NOTE | 2020-04-15 12:34 | REPMRS ---
Patient History The patient states she has not had a clinical breast exam in over a year. Family history of breast cancer at age 50 or over in sister, breast cancer at age 50 or over in sister, colorectal cancer at age 50 or over in sister, breast cancer under age 50 in mother. Benign lumpectomy of the right breast, 1979. Taking unspecified hormones for 40 years. Digital Woman Screen Mammo: April 15, 2020 - Exam #: [id number] Bilateral CC and MLO view(s) were taken. Technologist: Cintia Archer, Technologist Prior study comparison: April 15, 2019, bilateral digital woman screen mammo performed at [facility]. February 12, 2018, bilateral digital woman screen mammo performed at [facility]. February 08, 2017, digital woman screen mammo performed at [facility]. FINDINGS: The breast tissue is heterogeneously dense. This may lower the sensitivity of mammography. The Volpara volumetric breast density category is: C. There is a moderate amount of heterogeneously dense fibroglandular tissue which is fairly symmetric. There is no interval development of dominant mass, architectural distortion, or grouped microcalcification typical of malignancy. There has been no change in the appearance of the mammogram from the prior studies. 3-D tomosynthesis shows no additional findings. Assessment: BI-RADS/ACR category 1 mammogram. Negative Mammogram. Recommendation Routine screening mammogram of both breasts in 1 year (for women over age 40). This patient's [facility] Lifetime Breast Cancer RIsk is estimated at 4.4 %. This mammogram was interpreted with the aid of an FDA-approved computer-aided dectection system. Electronically Signed By: Az Duran MD 04/15/20 [id number]
== END ==
LOC: M WHC 09:42
PROVIDERS: ATTEND Nurse Practitioner Adult Health
DX: Z12.31 Encounter for screening mammogram for malignant neoplasm of breast (principal)

== ENCOUNTER → 2021-03-16 | Outpatient (CLI) | payer MEDICARE, OTHER ==
[~2021-03-16] MED LIST changes: +LISI10TA22 PO; -LISI10TA4 PO; -LISI40TA PO; +LISI40TA4 PO
--- NOTE | 2021-03-17 21:11 | REPVR ---
PROCEDURE INFORMATION: Exam: MR Lumbar Spine Without Contrast Exam date and time: 03/16/2021 4:15 PM Age: 80 years old Clinical indication: Other: Radiculopathy; Prior surgery; Surgery date: 6+ months; Surgery type: Fusion; Additional info: Intervertebral disc disorder w/ radiculopathy ls TECHNIQUE: Imaging protocol: Multiplanar magnetic resonance images of the lumbar spine without intravenous contrast. COMPARISON: No relevant prior studies available. FINDINGS: Chronic postoperative changes compatible with posterior decompression and instrumented fusion at L4 and L5. Interbody fusion from L4 through S1. Modic type 1 edematous degenerative endplate change at L3-L4 and L5-S1. Lumbar vertebral body heights are maintained. No cord compression. No abnormal cord signal. Conus medullaris terminates at the L1 level. Paravertebral soft tissues are unremarkable. L1-L2: No significant canal or foraminal narrowing. L2-L3: Broad-based disc bulge and facet hypertrophy cause mild canal narrowing and [id number] bilateral foraminal narrowing. L3-L4: Broad-based disc bulge and facet hypertrophy cause severe canal narrowing with crowding of the cauda equina. Moderate left and severe right foraminal narrowing. L4-L5: Status post fusion. No significant canal or foraminal narrowing. L5-S1: Status post fusion. Broad-based disc bulge and facet hypertrophy cause mild bilateral foraminal narrowing. 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 Electronically signed by: Flavio Veras On 03/17/2021 21:11:00 PM
== END ==
LOC: M RAD 15:05
PROVIDERS: ATTEND Physician Assistant
DX: M51.16 Intervertebral disc disorders with radiculopathy, lumbar region (principal); M43.27 Fusion of spine, lumbosacral region; M51.26 Other intervertebral disc displacement, lumbar region

== ENCOUNTER → 2021-05-15 | Outpatient (CLI) | payer MEDICARE, OTHER | LOC: M WHC 14:24 | PROVIDERS: ATTEND Nurse Practitioner Adult Health | DX: Z12.31 Encounter for screening mammogram for malignant neoplasm of breast (principal) ==

== ENCOUNTER → 2021-06-27 | Outpatient (CLI) | payer MEDICARE, OTHER | LOC: M WHC 13:21 | PROVIDERS: ATTEND Nurse Practitioner Adult Health | DX: Z13.820 Encounter for screening for osteoporosis (principal); M85.89 Other specified disorders of bone density and structure, multiple sites ==

== ENCOUNTER → 2021-11-06 | Outpatient (CLI) | payer MEDICARE, OTHER ==
[2021-11-06 18:29] LABS: BASO # 0.1 10^3/uL (0.0-0.2); BASO % 0.8 % (0.0-1.0); EOS # 0.3 10^3/uL (0.0-0.5); HEMATOCRIT 35.2 % (36.0-47.0); HEMOGLOBIN 11.4 g/dl (12.0-15.5); LYMPH # 2.7 10^3/uL (1.5-5.0); LYMPH % 34.1 % (24.0-44.0); MEAN CORPUSCULAR HEMOGLOBIN 31.5 pg (27.0-33.0); MEAN CORPUSCULAR HGB CONC 32.4 g/dl (32.0-36.5); MEAN CORPUSCULAR VOLUME 97.2 fl (80.0-96.0); MONO # 0.6 10^3/uL (0.0-0.8); MONO % 7.4 % (2.0-8.0); NEUTROPHILS # 4.2 10^3/uL (1.5-8.5); NEUTROPHILS % 53.4 % (36.0-66.0); PLATELET COUNT, AUTOMATED 263 10^3/uL (150-450); RED BLOOD COUNT 3.62 10^6/uL (4.00-5.40); WHITE BLOOD COUNT 7.9 10^3/uL (4.0-10.0)
[2021-11-06 19:33] LABS: ERYTHROCYTE SEDIMENTATION RATE 13 mm/hr (0-30)
== END ==
LOC: M LAB 17:53
PROVIDERS: ATTEND Orthopaedic Surgery
DX: M25.562 Pain in left knee (principal)

== ENCOUNTER → 2021-11-21 | Outpatient (CLI) | payer MEDICARE, OTHER | LOC: M RAD 09:08 | PROVIDERS: ATTEND Physician Assistant | DX: M25.562 Pain in left knee (principal) | CPT/HCPCS: 78315; A9503 ==

== ENCOUNTER → 2021-12-26 | Outpatient (REF) | payer MEDICARE, OTHER ==
[2021-12-26 11:50] LABS: APPEARANCE, URINE MANUAL CLOUDY (CLEAR); COLOR, URINE MANUAL BROWN (YELLOW); GLUCOSE, URINE (UA) MANUAL NEGATIVE (NEGATIVE); PROTEIN, URINE MANUAL 2+ mg/dL (NEGATIVE); SPECIFIC GRAVITY,URINE MANUAL 1.015 (1.002-1.035)
[2021-12-26 11:51] LABS: BILIRUBIN, URINE MANUAL NEGATIVE (NEGATIVE); BLOOD URINE MANUAL POSITIVE (NEGATIVE); KETONE, URINE MANUAL NEGATIVE (NEGATIVE); LEUKOCYTE ESTERASE, URINE MAN POSITIVE (NEGATIVE); NITRITE, URINE MANUAL POSITIVE (NEGATIVE); UROBILINOGEN, URINE MANUAL NORMAL (NORMAL)
[2021-12-26 12:13] LABS: BACTERIA, URINE SMALL AMOUNT; HYALINE CAST, URINE NONE SEEN /lpf (0-1); MUCUS, URINE SMALL AMOUNT (NEGATIVE); RBC, URINE TNTC /hpf (0-3); SQUAMOUS EPITHELIAL CELL URINE SMALL AMOUNT /hpf (SMALL AMT); WBC, URINE TNTC /hpf (0-3)
== END ==
LOC: M LAB REF 11:30
PROVIDERS: ATTEND Physician Assistant Medical
DX: N39.0 Urinary tract infection, site not specified (principal)

== ENCOUNTER → 2022-03-28 | Outpatient (REF) | payer MEDICARE, OTHER ==
[2022-03-28 22:23] LABS: URIC ACID 5.6 MG/DL (3.1-7.8)
[2022-03-28 22:24] LABS: C REACTIVE PROTEIN QUANTITATIV 0.4 MG/DL (<1.0)
[2022-03-28 22:26] LABS: RHEUMATOID FACTOR QUANT 3.6 IU/ML (<14)
[2022-03-30 12:08] LABS: ANTINUCLEAR ANTIBODIES DIRECT Negative (Negative)
== END ==
LOC: M LAB REF 16:31
PROVIDERS: ATTEND Nurse Practitioner Adult Health
DX: M25.50 Pain in unspecified joint (principal); N18.31 Chronic kidney disease, stage 3a

== ENCOUNTER → 2022-04-05 | Outpatient (CLI) | payer MEDICARE, OTHER | LOC: M RAD 08:11 | PROVIDERS: ATTEND Physician Assistant | DX: I65.01 Occlusion and stenosis of right vertebral artery (principal); I70.1 Atherosclerosis of renal artery ==

== ENCOUNTER → 2022-05-18 | Outpatient (CLI) | payer MEDICARE, OTHER | LOC: M WHC 12:42 | PROVIDERS: ATTEND Nurse Practitioner Adult Health | DX: Z12.31 Encounter for screening mammogram for malignant neoplasm of breast (principal) ==

== ENCOUNTER → 2022-08-09 | Outpatient (REF) | payer MEDICARE, OTHER ==
[~2022-08-09] MED LIST changes: +FLUT50SP17; -FLUTISP
[2022-08-09 13:28] LABS: APPEARANCE, URINE CLOUDY (CLEAR); BACTERIA, URINE AUTO NEGATIVE (NEGATIVE); BILIRUBIN, URINE AUTO NEGATIVE (NEGATIVE); BLOOD, URINE BLOOD 3+ (NEGATIVE); COLOR, URINE AMBER (YELLOW); GLUCOSE, URINE (UA) AUTO NEGATIVE (NEGATIVE); KETONE, URINE AUTO TRACE mg/dL (NEGATIVE); LEUKOCYTE ESTERASE, URINE AUTO 2+ (NEGATIVE); NITRITE, URINE AUTO NEGATIVE (NEGATIVE); PROTEIN, URINE AUTO 2+ mg/dL (NEGATIVE); RBC, URINE AUTO TNTC /HPF (0-3); SPECIFIC GRAVITY URINE AUTO 1.019 (1.002-1.035); SQUAMOUS EPITHELIAL CELL UR AU 0 /HPF (0-6); UROBILINOGEN, URINE AUTO 0.2 mg/dL (0.0-2.0); WBC, URINE AUTO TNTC /HPF (0-3)
== END ==
LOC: M LAB REF 12:21
PROVIDERS: ATTEND Physician Assistant
DX: N39.0 Urinary tract infection, site not specified (principal)

== ENCOUNTER → 2022-09-26 | Outpatient (CLI) | payer MEDICARE, OTHER ==
[2022-09-26 17:21] LABS: URIC ACID 6.6 MG/DL (3.1-7.8)
[2022-09-26 17:22] LABS: C REACTIVE PROTEIN QUANTITATIV 1.2 MG/DL (<1.0)
[2022-09-26 17:24] LABS: RHEUMATOID FACTOR QUANT 6.3 IU/ML (<14)
[2022-09-28 23:07] LABS: ANA (HEP2) Negative (.); CYCLIC CITRULLINATED PEPTIDE 5 units (0-19)
== END ==
LOC: M WUC 11:00
PROVIDERS: ATTEND Nurse Practitioner Adult Health
DX: M25.59 Pain in other specified joint (principal)

== ENCOUNTER → 2022-12-18 | Outpatient (REF) | payer MEDICARE, OTHER ==
[2022-12-18 13:00] LABS: CPK CREATINE PHOSPHOKINASE 162 U/L (34-145)
[2022-12-18 13:01] LABS: IRON (FE) 91 UG/DL (50-170)
[2022-12-18 13:05] LABS: MAGNESIUM LEVEL 1.8 MG/DL (1.8-2.4); PHOSPHORUS LEVEL 3.7 MG/DL (2.4-5.1)
[2022-12-18 13:06] LABS: C REACTIVE PROTEIN QUANTITATIV < 0.40 MG/DL (<1.0)
[2022-12-18 13:07] LABS: VITAMIN B12 LEVEL 874 PG/ML (211-911)
== END ==
LOC: M SFHCRHEU 10:59
PROVIDERS: ATTEND Internal Medicine
DX: M79.10 Myalgia, unspecified site (principal); M15.4 Erosive (osteo)arthritis; Z79.899 Other long term (current) drug therapy

== ENCOUNTER → 2023-04-05 | Outpatient (CLI) | payer MEDICARE, OTHER ==
[~2023-04-05] MED LIST changes: -FLUT50SP17; +FLUTISP
== END ==
LOC: M RAD 08:59
PROVIDERS: ATTEND Physician Assistant
DX: I70.1 Atherosclerosis of renal artery (principal)

== ENCOUNTER → 2023-05-20 | Outpatient (CLI) | payer MEDICARE, OTHER | LOC: M WHC 11:21 | PROVIDERS: ATTEND Nurse Practitioner Family | DX: Z12.31 Encounter for screening mammogram for malignant neoplasm of breast (principal) ==

== ENCOUNTER → 2024-04-13 | Outpatient (CLI) | payer MEDICARE, OTHER | LOC: M RAD 08:42 | PROVIDERS: ATTEND Physician Assistant | DX: I70.1 Atherosclerosis of renal artery (principal); Z96.0 Presence of urogenital implants ==

== ENCOUNTER → 2024-05-26 | Outpatient (CLI) | payer MEDICARE, OTHER | LOC: M WHC 12:18 | PROVIDERS: ATTEND Internal Medicine | DX: Z12.31 Encounter for screening mammogram for malignant neoplasm of breast (principal); R92.343 Mammographic extreme density, bilateral breasts ==

== ENCOUNTER → 2025-01-09 | Outpatient (REF) | payer MEDICARE, OTHER ==
[~2025-01-09] MED LIST changes: +LISI40TA10 PO; -LISI40TA4 PO; -PRAV20TA2 PO; +PRAV20TA78 PO
[2025-01-09 18:38] LABS: APPEARANCE, URINE CLOUDY (CLEAR); BACTERIA, URINE AUTO 1+ (NEGATIVE); BILIRUBIN, URINE AUTO NEGATIVE (NEGATIVE); BLOOD, URINE BLOOD 2+ (NEGATIVE); GLUCOSE, URINE (UA) AUTO NEGATIVE (NEGATIVE); KETONE, URINE AUTO NEGATIVE (NEGATIVE); LEUKOCYTE ESTERASE, URINE AUTO 2+ (NEGATIVE); NITRITE, URINE AUTO POSITIVE (NEGATIVE); PROTEIN, URINE AUTO 2+ mg/dL (NEGATIVE); RBC, URINE AUTO TNTC /HPF (0-3); SPECIFIC GRAVITY URINE AUTO 1.011 (1.002-1.035); SQUAMOUS EPITHELIAL CELL UR AU 0 /HPF (0-6); UROBILINOGEN, URINE AUTO 0.2 mg/dL (0.0-2.0); WBC, URINE AUTO TNTC /HPF (0-3)
== END ==
LOC: M LAB REF 17:47
DX: N39.0 Urinary tract infection, site not specified (principal)

== ENCOUNTER → 2025-04-14 | Outpatient (CLI) | payer MEDICARE, OTHER | LOC: M RAD 09:18 | PROVIDERS: ATTEND Physician Assistant | DX: I70.1 Atherosclerosis of renal artery (principal) ==